=== PATIENT | female | born 1950 | race Caucasian/White ===

== ENCOUNTER 2016-05-14 06:01 | Observation (INO) | payer OTHER ==
[~2016-05-14] VITALS: Ht 154.9 cm; Wt 75.3 kg
[~2016-05-14 06:01] MED LIST: CITA10TA68 PO; FOLI1 PO; FURO40 PO; INSLAN SQ; LISI-660 PO; PANT40TA25 PO; RIFAX550 PO; SPIR25 PO
[2016-05-14 06:38] LABS: GLUCOSE,POINT OF CARE 287 MG/DL (70-110)
[2016-05-14] MEDS ORDERED: KETOROLAC TROMETHAMINE 30 MG/ML VIAL IVP ONE (06:45)
[2016-05-14 07:03] LABS: BASOPHILS % (AUTO) 0.4 % (0.0-2.0); EOSINOPHILS % (AUTO) 1.5 % (1.0-6.0); HEMATOCRIT 27.3 % (36-46); HEMOGLOBIN 8.9 g/dL (12.0-16.0); LYMPHOCYTES # (AUTO) 0.5 K/uL (1.0-4.8); MEAN CORPUSCULAR HEMOGLOBIN 24.6 pg (26.0-34.0); MEAN CORPUSCULAR HGB CONC 32.5 G/dL (31.0-37.0); MEAN CORPUSCULAR VOLUME 75 fL (80-100); MONOCYTES # (AUTO) 0.2 K/uL (0.1-1.0); NEUTROPHILS # (AUTO) 1.4 K/uL (1.8-7.7); NEUTROPHILS % (AUTO) 66.1 % (40.0-70.0); RED BLOOD CELL COUNT(AUTO) 3.62 MIL/uL (4.00-5.20); RED CELL DISTRIBUTION WIDTH 18.6 % (11.5-14.5); WHITE BLOOD COUNT (AUTO) 2.2 K/uL (4.5-11.0)
[2016-05-14 07:07] LABS: ANION GAP 8 mmol/L (8-16); CALCIUM, TOTAL 9.2 mg/dL (8.8-10.5); CARBON DIOXIDE 25 mmol/L (22-29); CHLORIDE 105 mmol/L (98-107); CREATININE 0.95 mg/dL (0.60-1.30); GLOMERULAR FILTR. RATE CALC 59 mL/min (>60); POTASSIUM 4.1 mmol/L (3.5-5.1); SODIUM SERUM 138 mmol/L (136-145); UREA NITROGEN, BLOOD 26 mg/dL (7-18)
[2016-05-14 07:12] LABS: INR 1.1 (0.9-1.1); PROTHROMBIN TIME 11.3 SEC (9.4-11.6)
[2016-05-14 07:13] LABS: ALANINE AMINOTRANSFERASE 51 U/L (12-78); ALBUMIN 2.7 g/dL (3.4-5.0); ASPARTATE AMINOTRANSFERASE 64 U/L (15-37); BILIRUBIN,TOTAL 0.6 mg/dL (0.1-1.0); TOTAL PROTEIN, SERUM 7.2 g/dL (6.4-8.2)
[2016-05-14 07:18] LABS: PLATELET COUNT (AUTO) 42 K/uL (150-450)
[2016-05-14 07:19] LABS: RBC MORPHOLOGY COMMENT ABNORMAL RBC MORPH
[2016-05-14] MEDS ORDERED: ONDANSETRON HCL 4 MG/2 ML VIAL IVP ONE (07:30)
[2016-05-14] MEDS ORDERED: ONDANSETRON HCL 4 MG/2 ML VIAL IVP PRN ×2 (08:00→19:45)
[2016-05-14] MEDS: MORPHINE SULFATE 2 MG/ML SYRINGE IVP PRN ×3 (09:10→19:51)
[2016-05-14 17:21] VITALS: BP 107/61
[2016-05-14] MEDS ORDERED: INFLUENZA VIRUS VACCINE QVS 2016-17 (3YR+)/PF 60 MCG/0.5 ML SYRINGE IM ONE (19:15)
[2016-05-14] MEDS ORDERED: ZOLPIDEM TARTRATE 5 MG TABLET PO PRN (19:45)
[2016-05-14] MEDS ORDERED: MAGNESIUM HYDROXIDE SUSPENSION 30 ML UDCUP PO PRN (19:45)
[2016-05-14] MEDS ORDERED: MORPHINE SULFATE 2 MG/ML SYRINGE IVP PRN (19:45)
[2016-05-14] MEDS ORDERED: BISACODYL 10 MG RECTAL RECTAL SUPPOSITORY PR PRN (19:45)
[2016-05-14] MEDS ORDERED: ACETAMINOPHEN 325 MG TABLET PO PRN (19:45)
[2016-05-14] MEDS ORDERED: HYDROCODONE/ACETAMINOPHEN 5-325 MG TABLET PO PRN (19:45)
[2016-05-14 19:51] VITALS: BP 123/63
[2016-05-14] MEDS ORDERED: SODIUM CHLORIDE 0.9% 1,000 ML IV ONE (20:00)
[2016-05-14] MEDS: DOCUSATE SODIUM 100 MG CAPSULE PO SCH (20:27)
[2016-05-14] MEDS: MetroNIDAZOLE 500 MG/NACL 100 ML IV SCH (21:17)
[2016-05-14] MEDS: RIFAXIMIN 550 MG TABLET PO SCH (21:18)
[2016-05-14] MEDS: CIPROFLOXACIN 400 MG/D5% WATER 200 ML IV SCH (22:40)
[2016-05-14] MEDS: HEPARIN SODIUM,PORCINE 5,000 UNITS/ML VIAL SQ SCH (23:04)
[2016-05-14 23:21] VITALS: BP 100/59
[2016-05-15 04:39] VITALS: BP 106/60
[2016-05-15] MEDS: MetroNIDAZOLE 500 MG/NACL 100 ML IV SCH ×2 (04:46→12:23)
[2016-05-15 07:26] VITALS: BP 103/51
[2016-05-15] MEDS: RIFAXIMIN 550 MG TABLET PO SCH (08:12)
[2016-05-15] MEDS: CIPROFLOXACIN 400 MG/D5% WATER 200 ML IV SCH (08:13)
[2016-05-15] MEDS: DOCUSATE SODIUM 100 MG CAPSULE PO SCH (08:13)
[2016-05-15] MEDS: HEPARIN SODIUM,PORCINE 5,000 UNITS/ML VIAL SQ SCH ×2 (08:14→16:00)
[2016-05-15] MEDS ORDERED: FUROSEMIDE 40 MG TABLET PO SCH (09:00)
[2016-05-15] MEDS ORDERED: PANTOPRAZOLE SODIUM 40 MG DR TABLET PO SCH (09:00)
[2016-05-15] MEDS ORDERED: LISINOPRIL 5 MG TABLET PO SCH (09:00)
[2016-05-15] MEDS ORDERED: SPIRONOLACTONE 25 MG TABLET PO SCH (09:00)
[2016-05-15] MEDS ORDERED: CITALOPRAM HYDROBROMIDE 10 MG TABLET PO SCH (09:00)
[2016-05-15] MEDS ORDERED: FOLIC ACID 1 MG TABLET PO SCH (09:00)
[2016-05-15 11:24] VITALS: BP 96/58
[2016-05-15] MEDS ORDERED: HYDR-309 PO (14:37)
[2016-05-15 16:02] VITALS: BP 132/62
[2016-05-16 06:14] LABS: GLUCOSE COMMENT 1 Received Meds; GLUCOSE,POINT OF CARE 74 MG/DL (70-110)
[2016-05-16 07:23] LABS: GLUCOSE,POINT OF CARE 88 MG/DL (70-110)
[2016-05-17 20:51] LABS: GLUCOSE,POINT OF CARE 75 MG/DL (70-110)
== END 2016-05-15 18:00 | disposition home or self-care (01) ==
LOC: EMS 06:02 → 5S 16:21 → INTOOBSV 16:21 → OBSVTOIN 16:21
PROVIDERS: ADMIT Internal Medicine; ATTEND Internal Medicine
DX: K92.2 Gastrointestinal hemorrhage, unspecified (principal); D61.818 Other pancytopenia; K55.9 Vascular disorder of intestine, unspecified; K74.60 Unspecified cirrhosis of liver; E78.5 Hyperlipidemia, unspecified; Z23 Encounter for immunization
CPT/HCPCS: 36415; 80053; 82962 ×2; 85018; 85025; 85610; 87081; 90471; 96361; 96365; 96366; 96367; 96372 ×2; 96375; 96376; 99285; G0378; G0480; J0744; J1644 ×2; J1885; J2270; J2405; J3490; J7030 ×2; 96374

== ENCOUNTER 2016-07-08 05:39 | Emergency (ER) | payer OTHER ==
[~2016-07-08] VITALS: Ht 154.9 cm; Wt 72.7 kg
[~2016-07-08 05:39] MED LIST changes: +HYDR-309 PO; -INSLAN SQ
[2016-07-08] MEDS ORDERED: MORPHINE SULFATE 4 MG/ML SYRINGE IVP ONE (06:45)
[2016-07-08] MEDS ORDERED: ONDANSETRON HCL 4 MG/2 ML VIAL IVP ONE (06:45)
[2016-07-08 06:51] LABS: APPEARANCE,URINE CLEAR (CLEAR); GLUCOSE, URINE (UA) >=1000 mg/dL (NEGATIVE); KETONES,URINE NEGATIVE (NEGATIVE); LEUKOCYTE ESTERASE ,URINE SMALL (NEGATIVE); OCCULT BLOOD,URINE NEGATIVE (NEGATIVE); PROTEIN,URINE NEGATIVE (NEGATIVE)
[2016-07-08 06:55] LABS: ADD UA MICROSCOPIC YES
[2016-07-08 07:04] LABS: ORIG DRAW (USER) PTCARESTAF
[2016-07-08 07:15] LABS: RBC,URINE None Seen /HPF (0-2)
[2016-07-08 07:16] LABS: SQUAMOUS EPITHELIAL CELL,UR Rare /LPF (None Seen)
[2016-07-08 07:23] LABS: CALCIUM, TOTAL 9.9 mg/dL (8.8-10.5); CREATININE 0.98 mg/dL (0.60-1.30); POTASSIUM 4.2 mmol/L (3.5-5.1)
[2016-07-08 07:29] LABS: ALBUMIN 3.2 g/dL (3.4-5.0); BILIRUBIN,TOTAL 0.7 mg/dL (0.1-1.0); TOTAL PROTEIN, SERUM 8.5 g/dL (6.4-8.2)
[2016-07-08 07:48] LABS: BASOPHILS % (AUTO) 0.3 % (0.0-2.0); EOSINOPHILS % (AUTO) 1.7 % (1.0-6.0); HEMATOCRIT 33.2 % (36-46); LYMPHOCYTES # (AUTO) 0.7 K/uL (1.0-4.8); LYMPHOCYTES % (AUTO) 26.1 % (22.0-44.0); MEAN CORPUSCULAR HEMOGLOBIN 25.7 pg (26.0-34.0); MEAN CORPUSCULAR VOLUME 78 fL (80-100); MONOCYTES # (AUTO) 0.3 K/uL (0.1-1.0); NEUTROPHILS # (AUTO) 1.5 K/uL (1.8-7.7); NEUTROPHILS % (AUTO) 59.9 % (40.0-70.0); RED BLOOD CELL COUNT(AUTO) 4.26 MIL/uL (4.00-5.20); RED CELL DISTRIBUTION WIDTH 18.4 % (11.5-14.5); WHITE BLOOD COUNT (AUTO) 2.5 K/uL (4.5-11.0)
[2016-07-08 07:49] LABS: PLATELET COUNT (AUTO) 45 K/uL (150-450)
[2016-07-08 09:24] VITALS: BP 123/74
[2016-07-08 10:53] LABS: RBC MORPHOLOGY COMMENT ABNORMAL RBC MORPH
== END 2016-07-08 09:33 | disposition home or self-care (01) ==
LOC: EMS 05:40
DX: R10.13 Epigastric pain (principal); E11.9 Type 2 diabetes mellitus without complications; K21.9 Gastro-esophageal reflux disease without esophagitis; I11.9 Hypertensive heart disease without heart failure; Z87.891 Personal history of nicotine dependence
CPT/HCPCS: 36415; 80053; 81001; 83690; 85025; 96374; 96375; 99284; J2270; J2405; 99285

== ENCOUNTER 2016-07-17 08:14 | Emergency (ER) | payer OTHER ==
[~2016-07-17] VITALS: Ht 154.9 cm; Wt 77.3 kg
[2016-07-17 08:27] LABS: GLUCOSE,POINT OF CARE 377 MG/DL (70-110)
[2016-07-17 09:17] LABS: GLUCOSE,POINT OF CARE 319 MG/DL (70-110)
[2016-07-17 10:17] VITALS: BP 110/64
[2016-07-17] MEDS ORDERED: IBUPROFEN 600 MG TABLET PO ONE (10:30)
[2016-07-17] MEDS ORDERED: INSLAN SQ (10:39)
== END 2016-07-17 10:40 | disposition home or self-care (01) ==
LOC: EMS 08:17
DX: J40 Bronchitis, not specified as acute or chronic (principal); E10.65 Type 1 diabetes mellitus with hyperglycemia; K21.9 Gastro-esophageal reflux disease without esophagitis; I11.9 Hypertensive heart disease without heart failure; Z87.891 Personal history of nicotine dependence
CPT/HCPCS: 82948; 82962; 99283; 99406

== ENCOUNTER 2016-07-29 17:00 | Emergency (ER) | payer OTHER ==
[~2016-07-29] VITALS: Ht 154.9 cm; Wt 75.5 kg
[~2016-07-29 17:00] MED LIST changes: +INSLAN SQ
[2016-07-29] MEDS ORDERED: IBUPROFEN 600 MG TABLET PO ONE (20:30)
[2016-07-29 20:44] VITALS: BP 119/80
== END 2016-07-29 20:44 | disposition home or self-care (01) ==
LOC: EMS 17:02
DX: R21 Rash and other nonspecific skin eruption (principal); E11.9 Type 2 diabetes mellitus without complications; I11.9 Hypertensive heart disease without heart failure; K21.9 Gastro-esophageal reflux disease without esophagitis; Z87.891 Personal history of nicotine dependence; Z79.4 Long term (current) use of insulin
CPT/HCPCS: 82962; 99283

== ENCOUNTER 2016-08-13 12:29 | Emergency (ER) | payer OTHER ==
[~2016-08-13] VITALS: Ht 154.9 cm; Wt 73.2 kg
[2016-08-13] MEDS ORDERED: SODIUM CHLORIDE 0.9% 1,000 ML IV ONE ×2 (12:55→13:00)
[2016-08-13] MEDS ORDERED: KETOROLAC TROMETHAMINE 30 MG/ML VIAL IVP ONE (13:00)
[2016-08-13] MEDS ORDERED: ONDANSETRON HCL 4 MG/2 ML VIAL IVP ONE (13:00)
[2016-08-13 13:12] LABS: APPEARANCE,URINE CLEAR (CLEAR); GLUCOSE, URINE (UA) 250 mg/dL (NEGATIVE); KETONES,URINE NEGATIVE (NEGATIVE); LEUKOCYTE ESTERASE ,URINE NEGATIVE (NEGATIVE); OCCULT BLOOD,URINE NEGATIVE (NEGATIVE); PROTEIN,URINE NEGATIVE (NEGATIVE)
[2016-08-13 13:14] LABS: ADD UA MICROSCOPIC YES
[2016-08-13 13:30] LABS: RBC,URINE None Seen /HPF (0-2); SQUAMOUS EPITHELIAL CELL,UR Few /LPF (None Seen); WBC,URINE 0-2 /HPF (0-5)
[2016-08-13 13:34] LABS: BASOPHILS % (AUTO) 0.4 % (0.0-2.0); EOSINOPHILS % (AUTO) 0 % (1.0-6.0); HEMATOCRIT 34.6 % (36-46); HEMOGLOBIN 11.3 g/dL (12.0-16.0); LYMPHOCYTES # (AUTO) 0.7 K/uL (1.0-4.8); MEAN CORPUSCULAR HEMOGLOBIN 24.5 pg (26.0-34.0); MEAN CORPUSCULAR HGB CONC 32.6 G/dL (31.0-37.0); MEAN CORPUSCULAR VOLUME 75 fL (80-100); MONOCYTES # (AUTO) 0.3 K/uL (0.1-1.0); MONOCYTES % (AUTO) 8.2 % (2.0-9.0); NEUTROPHILS # (AUTO) 2.8 K/uL (1.8-7.7); NEUTROPHILS % (AUTO) 73.4 % (40.0-70.0); PLATELET COUNT (AUTO) 66 K/uL (150-450); RED CELL DISTRIBUTION WIDTH 17.1 % (11.5-14.5); WHITE BLOOD COUNT (AUTO) 3.9 K/uL (4.5-11.0)
[2016-08-13 13:41] LABS: CALCIUM, TOTAL 8.9 mg/dL (8.8-10.5); CREATININE 0.94 mg/dL (0.60-1.30); POTASSIUM 3.8 mmol/L (3.5-5.1)
[2016-08-13 13:46] LABS: ALBUMIN 3.2 g/dL (3.4-5.0); TOTAL PROTEIN, SERUM 8.7 g/dL (6.4-8.2)
[2016-08-13 13:53] LABS: RBC MORPHOLOGY COMMENT ABNORMAL RBC MORPH
[2016-08-13] MEDS ORDERED: PANTOPRAZOLE SODIUM 40 MG/VIAL IVP ONE (14:30)
[2016-08-13] MEDS ORDERED: DONNATAL/LIDOCAINE/MAALOX 55 ML BOTTLE PO ONE (14:30)
[2016-08-13] MEDS ORDERED: MORPHINE SULFATE 10 MG/ML SYRINGE IVP ONE (15:00)
[2016-08-13] MEDS ORDERED: METOCLOPRAMIDE HCL 5 MG/ML 2 ML VIAL IVP ONE (15:00)
[2016-08-13 16:00] VITALS: BP 114/66
== END 2016-08-13 16:38 | disposition home or self-care (01) ==
LOC: EMS 12:30
DX: K29.20 Alcoholic gastritis without bleeding (principal); E11.9 Type 2 diabetes mellitus without complications; I11.9 Hypertensive heart disease without heart failure; K21.9 Gastro-esophageal reflux disease without esophagitis; Z87.891 Personal history of nicotine dependence; Z79.4 Long term (current) use of insulin
CPT/HCPCS: 36415; 76705; 80053; 81001; 82962; 83690; 85025; 93005; 96361; 96374; 96375; 99285; C9113; J1885; J2270; J2405; J2765; J7030; Z7610

== ENCOUNTER 2016-08-27 07:39 | Emergency (ER) | payer OTHER ==
[~2016-08-27] VITALS: Ht 154.9 cm; Wt 75.5 kg
[2016-08-27] MEDS ORDERED: HYDROCODONE/ACETAMINOPHEN 5-325 MG TABLET PO ONE (08:00)
[2016-08-27 08:02] LABS: GLUCOSE COMMENT 1 Doctor Notified; GLUCOSE,POINT OF CARE 332 MG/DL (70-110)
[2016-08-27 09:12] VITALS: BP 112/66
== END 2016-08-27 09:40 | disposition home or self-care (01) ==
LOC: EMS 07:42
DX: S90.32XA Contusion of left foot, initial encounter (principal); E11.65 Type 2 diabetes mellitus with hyperglycemia; K21.9 Gastro-esophageal reflux disease without esophagitis; I10 Essential (primary) hypertension; Z79.4 Long term (current) use of insulin; Z87.891 Personal history of nicotine dependence; X58.XXXA Exposure to other specified factors, initial encounter; Y93.89 Activity, other specified; Y92.89 Other specified places as the place of occurrence of the external cause; Y99.8 Other external cause status
CPT/HCPCS: 82962; 99284

== ENCOUNTER 2016-09-04 15:38 | Emergency (ER) | payer OTHER ==
[~2016-09-04] VITALS: Ht 154.9 cm; Wt 75.5 kg
[~2016-09-04 15:38] MED LIST changes: -HYDR-309 PO
[2016-09-04 15:51] LABS: GLUCOSE COMMENT 1 Repeated; GLUCOSE,POINT OF CARE 435 MG/DL (70-110)
[2016-09-04 17:52] LABS: GLUCOSE,POINT OF CARE 419 MG/DL (70-110)
[2016-09-04] MEDS ORDERED: INSULIN REGULAR, HUMAN 100 UNITS/ML IV ONE (18:45)
[2016-09-04] MEDS ORDERED: SODIUM CHLORIDE 0.9% 1,000 ML IV ONE ×2 (18:45→19:30)
[2016-09-04 19:01] LABS: GLUCOSE COMMENT 1 Doctor Notified; GLUCOSE,POINT OF CARE 359 MG/DL (70-110)
[2016-09-04 19:06] LABS: CALCIUM, TOTAL 10.3 mg/dL (8.8-10.5); CREATININE 1.09 mg/dL (0.60-1.30)
[2016-09-04 19:07] LABS: BASOPHILS % (AUTO) 0.1 % (0.0-2.0); EOSINOPHILS # (AUTO) 0.01 K/uL (0.00-0.70); EOSINOPHILS % (AUTO) 0.46 % (1.0-6.0); HEMATOCRIT 30.3 % (36-46); HEMOGLOBIN 9.8 g/dL (12.0-16.0); LYMPHOCYTES # (AUTO) 0.4 K/uL (1.0-4.8); LYMPHOCYTES % (AUTO) 19.2 % (22.0-44.0); MEAN CORPUSCULAR HGB CONC 32.4 G/dL (31.0-37.0); MEAN CORPUSCULAR VOLUME 77 fL (80-100); MONOCYTES # (AUTO) 0.2 K/uL (0.1-1.0); MONOCYTES % (AUTO) 6.7 % (2.0-9.0); NEUTROPHILS # (AUTO) 1.6 K/uL (1.8-7.7); NEUTROPHILS % (AUTO) 73.5 % (40.0-70.0); RED BLOOD CELL COUNT(AUTO) 3.93 MIL/uL (4.00-5.20); WHITE BLOOD COUNT (AUTO) 2.2 K/uL (4.5-11.0)
[2016-09-04 19:12] LABS: ALBUMIN 2.8 g/dL (3.4-5.0); BILIRUBIN,TOTAL 0.6 mg/dL (0.1-1.0); TOTAL PROTEIN, SERUM 7.9 g/dL (6.4-8.2)
[2016-09-04] MEDS ORDERED: KETOROLAC TROMETHAMINE 30 MG/ML VIAL IVP ONE (19:30)
[2016-09-04] MEDS ORDERED: OxyCODONE HCL/ACETAMINOPHEN 5-325 MG TABLET PO ONE (19:45)
[2016-09-04] MEDS ORDERED: SULFAMETHOX/TRIMETH DS 800-160 MG/TABLET PO ONE (19:45)
[2016-09-04 19:46] LABS: PLATELET COUNT (AUTO) 41 K/uL (150-450)
[2016-09-04 19:47] LABS: RBC MORPHOLOGY COMMENT ABNORMAL RBC MORPH
[2016-09-04 19:51] LABS: APPEARANCE,URINE CLEAR (CLEAR); GLUCOSE, URINE (UA) >=1000 mg/dL (NEGATIVE); KETONES,URINE NEGATIVE (NEGATIVE); LEUKOCYTE ESTERASE ,URINE NEGATIVE (NEGATIVE); OCCULT BLOOD,URINE NEGATIVE (NEGATIVE); PROTEIN,URINE NEGATIVE (NEGATIVE)
[2016-09-04 19:53] LABS: ADD UA MICROSCOPIC YES
[2016-09-04 20:05] LABS: SQUAMOUS EPITHELIAL CELL,UR Few /LPF (None Seen)
[2016-09-04 20:06] LABS: RBC,URINE 0-2 /HPF (0-2); WBC,URINE 0-2 /HPF (0-5)
[2016-09-04 20:56] LABS: GLUCOSE COMMENT 1 Doctor Notified; GLUCOSE,POINT OF CARE 146 MG/DL (70-110)
[2016-09-04 21:18] VITALS: BP 118/76
== END 2016-09-04 21:20 | disposition home or self-care (01) ==
LOC: EMS 15:43
DX: L03.031 Cellulitis of right toe (principal); E11.65 Type 2 diabetes mellitus with hyperglycemia; I10 Essential (primary) hypertension; K21.9 Gastro-esophageal reflux disease without esophagitis; Z87.891 Personal history of nicotine dependence
CPT/HCPCS: 36415; 80053; 81001; 82962; 83690; 83880; 84484; 85025; 96361; 96374; 96375; 99285; J1815; J1885; J7030

== ENCOUNTER 2016-09-17 09:10 | Emergency (ER) | payer OTHER ==
[~2016-09-17] VITALS: Ht 154.9 cm; Wt 75.5 kg
[2016-09-17 09:27] LABS: GLUCOSE,POINT OF CARE > 600 MG/DL (70-110)
[2016-09-17] MEDS ORDERED: SODIUM CHLORIDE 0.9% 1,000 ML IV ONE (09:45)
[2016-09-17] MEDS ORDERED: MORPHINE SULFATE 4 MG/ML SYRINGE IVP ONE (09:45)
[2016-09-17] MEDS ORDERED: INSULIN REGULAR, HUMAN 100 UNITS/ML IVP ONE (09:45)
[2016-09-17 09:57] LABS: BASOPHILS % (AUTO) 1.1 % (0.0-2.0); EOSINOPHILS % (AUTO) 1.2 % (1.0-6.0); HEMATOCRIT 34.4 % (36-46); HEMOGLOBIN 10.8 g/dL (12.0-16.0); LYMPHOCYTES # (AUTO) 0.5 K/uL (1.0-4.8); LYMPHOCYTES % (AUTO) 22.5 % (22.0-44.0); MEAN CORPUSCULAR HGB CONC 31.3 G/dL (31.0-37.0); MEAN CORPUSCULAR VOLUME 76 fL (80-100); MONOCYTES # (AUTO) 0.2 K/uL (0.1-1.0); MONOCYTES % (AUTO) 6.5 % (2.0-9.0); NEUTROPHILS # (AUTO) 1.7 K/uL (1.8-7.7); NEUTROPHILS % (AUTO) 68.7 % (40.0-70.0); RED CELL DISTRIBUTION WIDTH 19.1 % (11.5-14.5); WHITE BLOOD COUNT (AUTO) 2.4 K/uL (4.5-11.0)
[2016-09-17 10:20] LABS: CALCIUM, TOTAL 9.4 mg/dL (8.8-10.5); CREATININE 1.02 mg/dL (0.60-1.30); POTASSIUM 4.6 mmol/L (3.5-5.1); TOTAL PROTEIN, SERUM 8.6 g/dL (6.4-8.2)
[2016-09-17 10:45] LABS: PLATELET COUNT (AUTO) 51 K/uL (150-450); RBC MORPHOLOGY COMMENT ABNORMAL RBC MORPH
[2016-09-17 11:07] LABS: GLUCOSE,POINT OF CARE 358 MG/DL (70-110)
[2016-09-17 11:55] VITALS: BP 110/57
[2016-09-17 12:02] LABS: GLUCOSE,POINT OF CARE 343 MG/DL (70-110)
== END 2016-09-17 12:10 | disposition home or self-care (01) ==
LOC: EMS 09:12
DX: S16.1XXA Strain of muscle, fascia and tendon at neck level, initial encounter (principal); S20.212A Contusion of left front wall of thorax, initial encounter; E11.65 Type 2 diabetes mellitus with hyperglycemia; D69.6 Thrombocytopenia, unspecified; R00.1 Bradycardia, unspecified; I11.9 Hypertensive heart disease without heart failure; K21.9 Gastro-esophageal reflux disease without esophagitis; Z87.891 Personal history of nicotine dependence; W06.XXXA Fall from bed, initial encounter; Y93.01 Activity, walking, marching and hiking; Y92.89 Other specified places as the place of occurrence of the external cause; Y99.8 Other external cause status
CPT/HCPCS: 36415; 71010; 72125; 80053; 82948; 82962; 85025; 93005; 96361; 96374; 96375; 99285; J1815; J2270; J7030

== ENCOUNTER 2016-09-28 18:38 | Inpatient (IN) | payer MEDICAID, OTHER ==
[~2016-09-28] VITALS: Ht 154.9 cm; Wt 72.1 kg
[2016-09-28 19:02] LABS: GLUCOSE,POINT OF CARE 391 MG/DL (70-110)
[2016-09-28] MEDS ORDERED: INSULIN REGULAR, HUMAN 100 UNITS/ML SQ ONE (19:30)
[2016-09-28 19:34] LABS: BASOPHILS % (AUTO) 0.2 % (0.0-2.0); EOSINOPHILS % (AUTO) 0.1 % (1.0-6.0); HEMATOCRIT 29.7 % (36-46); HEMOGLOBIN 9.4 g/dL (12.0-16.0); LYMPHOCYTES # (AUTO) 0.5 K/uL (1.0-4.8); LYMPHOCYTES % (AUTO) 21.8 % (22.0-44.0); MEAN CORPUSCULAR HEMOGLOBIN 24.2 pg (26.0-34.0); MEAN CORPUSCULAR HGB CONC 31.7 G/dL (31.0-37.0); MEAN CORPUSCULAR VOLUME 76 fL (80-100); MONOCYTES # (AUTO) 0.2 K/uL (0.1-1.0); MONOCYTES % (AUTO) 9.3 % (2.0-9.0); NEUTROPHILS # (AUTO) 1.4 K/uL (1.8-7.7); NEUTROPHILS % (AUTO) 68.6 % (40.0-70.0); RED BLOOD CELL COUNT(AUTO) 3.89 MIL/uL (4.00-5.20); RED CELL DISTRIBUTION WIDTH 19.7 % (11.5-14.5); WHITE BLOOD COUNT (AUTO) 2.1 K/uL (4.5-11.0)
[2016-09-28 19:41] LABS: ANION GAP 11 mmol/L (8-16); CALCIUM, TOTAL 8.8 mg/dL (8.8-10.5); CARBON DIOXIDE 23 mmol/L (22-29); CHLORIDE 97 mmol/L (98-107); CREATININE 1.04 mg/dL (0.60-1.30); GLOMERULAR FILTR. RATE CALC 53 mL/min (>60); POTASSIUM 3.9 mmol/L (3.5-5.1); SODIUM SERUM 131 mmol/L (136-145); UREA NITROGEN, BLOOD 12 mg/dL (7-18)
[2016-09-28 19:46] LABS: ALANINE AMINOTRANSFERASE 58 U/L (12-78); ALBUMIN 2.9 g/dL (3.4-5.0); ASPARTATE AMINOTRANSFERASE 102 U/L (15-37); BILIRUBIN,TOTAL 1.2 mg/dL (0.1-1.0); TOTAL PROTEIN, SERUM 7.6 g/dL (6.4-8.2)
[2016-09-28 20:07] LABS: PLATELET COUNT (AUTO) 48 K/uL (150-450)
[2016-09-28] MEDS ORDERED: ACETAMINOPHEN 500 MG TABLET PO ONE (20:30)
[2016-09-28] MEDS ORDERED: IBUPROFEN 600 MG TABLET PO ONE (20:30)
[2016-09-28] MEDS ORDERED: IBUPROFEN 800 MG TABLET PO ONE (20:45)
[2016-09-28] MEDS ORDERED: LORazepam 2 MG TABLET PO ONE (21:15)
[2016-09-28] MEDS ORDERED: SODIUM CHLORIDE 1 GM TABLET PO ONE (22:00)
[2016-09-28 22:01] LABS: GLUCOSE,POINT OF CARE 251 MG/DL (70-110)
[2016-09-28] MEDS ORDERED: PROMETHAZINE HCL 25 MG/ML VIAL IM PRN (22:15)
[2016-09-28] MEDS ORDERED: ZOLPIDEM TARTRATE 10 MG TABLET PO PRN (22:15)
[2016-09-28] MEDS ORDERED: CloNIDine HCL 0.1 MG TABLET PO PRN (22:15)
[2016-09-28] MEDS ORDERED: LOPERAMIDE HCL 2 MG CAPSULE PO PRN (22:15)
[2016-09-28] MEDS ORDERED: HydrOXYzine PAMOATE 50 MG CAPSULE PO PRN ×2 (22:15)
[2016-09-28] MEDS ORDERED: HALOPERIDOL 5 MG TABLET PO PRN (22:15)
[2016-09-28] MEDS ORDERED: GuaiFENesin/D-METHORPHAN [SUGAR-FREE] 200-20MG/10 ML SYRUP UDCUP PO PRN (22:15)
[2016-09-28] MEDS ORDERED: CYANOCOBALAMIN 1,000 MCG/ML VIAL IM ONE (22:15)
[2016-09-28 23:44] LABS: APPEARANCE,URINE CLEAR (CLEAR); GLUCOSE, URINE (UA) >=1000 mg/dL (NEGATIVE); KETONES,URINE NEGATIVE (NEGATIVE); LEUKOCYTE ESTERASE ,URINE SMALL (NEGATIVE); PH,URINE 5.5 (5.0-8.0); PROTEIN,URINE NEGATIVE (NEGATIVE)
[2016-09-28 23:45] VITALS: BP 141/84
[2016-09-28 23:48] LABS: ADD UA MICROSCOPIC YES; OCCULT BLOOD,URINE TRACE (NEGATIVE); SQUAMOUS EPITHELIAL CELL,UR Moderate /LPF (None Seen)
[2016-09-29] VITALS (15 sets, daily range): BP systolic 109–157; BP diastolic 57–88
[2016-09-29] MEDS: LORazepam 2 MG TABLET PO PRN ×2 (01:04→19:23)
[2016-09-29] MEDS: IBUPROFEN 600 MG TABLET PO PRN ×2 (01:05→12:54)
[2016-09-29] MEDS: CloNIDine HCL 0.1 MG TABLET PO SCH ×4 (06:00→22:00)
[2016-09-29 06:17] LABS: GLUCOSE,POINT OF CARE 171 MG/DL (70-110)
[2016-09-29 08:29] LABS: HEMOGLOBIN A1C 11.3 % (4.5-6.2)
[2016-09-29] MEDS: CITALOPRAM HYDROBROMIDE 10 MG TABLET PO SCH (08:34)
[2016-09-29] MEDS: FOLIC ACID 1 MG TABLET PO SCH (08:34)
[2016-09-29] MEDS: MULTIVITAMINS WITH MINERALS, THERAPEUTIC TABLET PO SCH (08:34)
[2016-09-29] MEDS: THIAMINE HCL 100 MG TABLET PO SCH ×2 (08:34→16:32)
[2016-09-29] MEDS ORDERED: PANTOPRAZOLE SODIUM 40 MG DR TABLET PO SCH (10:00)
[2016-09-29] MEDS: RIFAXIMIN 550 MG TABLET PO SCH ×2 (10:00→16:32)
[2016-09-29] MEDS ORDERED: GLUCAGON,HUMAN RECOMBINANT 1 MG VIAL IM PRN (10:00)
[2016-09-29] MEDS: NICOTINE 7 MG/24 HOUR PATCH TD SCH (12:19)
[2016-09-29 13:07] LABS: GLUCOSE COMMENT 1 Doctor Notified; GLUCOSE,POINT OF CARE 445 MG/DL (70-110)
[2016-09-29] MEDS: INSULIN ASPART 100 UNITS/ML SQ PRN ×3 (13:37→20:59)
[2016-09-29] MEDS: FUROSEMIDE 40 MG TABLET PO SCH (13:51)
[2016-09-29] MEDS: CEPHALEXIN MONOHYDRATE 500 MG CAPSULE PO SCH (16:32)
[2016-09-29 16:57] LABS: GLUCOSE,POINT OF CARE 362 MG/DL (70-110)
[2016-09-29] MEDS: INSULIN DETEMIR 100 UNITS/ML SQ SCH (20:54)
[2016-09-29 21:07] LABS: GLUCOSE,POINT OF CARE 363 MG/DL (70-110)
[2016-09-30 02:46] VITALS: BP 121/70
[2016-09-30 05:57] VITALS: BP 122/73
[2016-09-30 06:00] VITALS: BP 122/73
[2016-09-30] MEDS: CloNIDine HCL 0.1 MG TABLET PO SCH ×4 (06:22→21:55)
[2016-09-30 06:27] LABS: GLUCOSE,POINT OF CARE 173 MG/DL (70-110)
[2016-09-30] MEDS: INSULIN ASPART 100 UNITS/ML SQ PRN ×2 (06:45→11:03)
[2016-09-30 08:09] VITALS: BP 94/51
[2016-09-30] MEDS ORDERED: NICOTINE 7 MG/24 HOUR PATCH TD SCH (09:00)
[2016-09-30] MEDS: MULTIVITAMINS WITH MINERALS, THERAPEUTIC TABLET PO SCH (09:08)
[2016-09-30] MEDS: CITALOPRAM HYDROBROMIDE 10 MG TABLET PO SCH (09:08)
[2016-09-30] MEDS: NICOTINE 7 MG/24 HOUR PATCH TD SCH (09:08)
[2016-09-30] MEDS: RANITIDINE HCL 150 MG TABLET PO SCH (09:09)
[2016-09-30] MEDS: CEPHALEXIN MONOHYDRATE 500 MG CAPSULE PO SCH ×2 (09:09→16:26)
[2016-09-30] MEDS: LISINOPRIL 5 MG TABLET PO SCH (09:09)
[2016-09-30] MEDS: RIFAXIMIN 550 MG TABLET PO SCH ×2 (09:09→16:26)
[2016-09-30] MEDS: FOLIC ACID 1 MG TABLET PO SCH (09:09)
[2016-09-30] MEDS: GABAPENTIN 300 MG CAPSULE PO SCH ×3 (09:09→16:27)
[2016-09-30] MEDS: THIAMINE HCL 100 MG TABLET PO SCH ×2 (09:09→16:27)
[2016-09-30 09:10] VITALS: BP 113/60
[2016-09-30] MEDS: SPIRONOLACTONE 25 MG TABLET PO SCH (09:10)
[2016-09-30] MEDS: FUROSEMIDE 40 MG TABLET PO SCH (09:10)
[2016-09-30 09:33] LABS: GLUCOSE,POINT OF CARE 324 MG/DL (70-110)
[2016-09-30] MEDS: INSULIN DETEMIR 100 UNITS/ML SQ SCH ×2 (09:34→21:17)
[2016-09-30 10:57] LABS: GLUCOSE,POINT OF CARE 356 MG/DL (70-110)
[2016-09-30] MEDS: LORazepam 2 MG TABLET PO PRN (11:53)
[2016-09-30 16:00] VITALS: BP 108/68
[2016-09-30 17:17] LABS: GLUCOSE,POINT OF CARE 419 MG/DL (70-110)
[2016-09-30] MEDS ORDERED: INSULIN ASPART 100 UNITS/ML SQ ONE ×2 (18:30→22:45)
[2016-09-30 20:52] LABS: GLUCOSE,POINT OF CARE 418 MG/DL (70-110)
[2016-09-30 22:37] LABS: GLUCOSE,POINT OF CARE 407 MG/DL (70-110)
[2016-10-01 00:28] VITALS: BP 104/60
[2016-10-01 00:37] LABS: GLUCOSE,POINT OF CARE 276 MG/DL (70-110)
[2016-10-01 05:56] VITALS: BP 95/54
[2016-10-01] MEDS: CloNIDine HCL 0.1 MG TABLET PO SCH ×2 (06:00→12:21)
[2016-10-01 06:07] LABS: GLUCOSE,POINT OF CARE 297 MG/DL (70-110)
[2016-10-01] MEDS: INSULIN ASPART 100 UNITS/ML SQ PRN (06:31)
[2016-10-01] MEDS: IBUPROFEN 600 MG TABLET PO PRN (06:35)
[2016-10-01 08:10] VITALS: BP 103/68
[2016-10-01] MEDS ORDERED: INSULIN ASPART 100 UNITS/ML SQ PRN (08:30)
[2016-10-01] MEDS ORDERED: GLUCAGON,HUMAN RECOMBINANT 1 MG VIAL IM PRN (08:30)
[2016-10-01] MEDS: SPIRONOLACTONE 25 MG TABLET PO SCH (09:00)
[2016-10-01] MEDS: FUROSEMIDE 40 MG TABLET PO SCH ×2 (09:00→09:37)
[2016-10-01] MEDS: LISINOPRIL 5 MG TABLET PO SCH (09:00)
[2016-10-01] MEDS: MULTIVITAMINS WITH MINERALS, THERAPEUTIC TABLET PO SCH (09:36)
[2016-10-01] MEDS: NICOTINE 7 MG/24 HOUR PATCH TD SCH (09:36)
[2016-10-01] MEDS: GABAPENTIN 300 MG CAPSULE PO SCH ×3 (09:36→17:00)
[2016-10-01] MEDS: FOLIC ACID 1 MG TABLET PO SCH (09:37)
[2016-10-01] MEDS: CITALOPRAM HYDROBROMIDE 10 MG TABLET PO SCH (09:37)
[2016-10-01] MEDS: CEPHALEXIN MONOHYDRATE 500 MG CAPSULE PO SCH ×2 (09:37→17:00)
[2016-10-01] MEDS: THIAMINE HCL 100 MG TABLET PO SCH ×2 (09:37→17:00)
[2016-10-01] MEDS: RANITIDINE HCL 150 MG TABLET PO SCH (09:38)
[2016-10-01] MEDS: RIFAXIMIN 550 MG TABLET PO SCH ×2 (09:38→17:00)
[2016-10-01] MEDS: INSULIN DETEMIR 100 UNITS/ML SQ SCH ×2 (09:43→21:00)
[2016-10-01 09:45] VITALS: BP 105/63
[2016-10-01 09:47] LABS: GLUCOSE,POINT OF CARE 460 MG/DL (70-110)
[2016-10-01 11:07] LABS: GLUCOSE,POINT OF CARE 464 MG/DL (70-110)
[2016-10-01 12:37] LABS: GLUCOSE,POINT OF CARE 526 MG/DL (70-110)
[2016-10-01 12:56] LABS: GLUCOSE,POINT OF CARE 441 MG/DL (70-110)
[2016-10-01] MEDS ORDERED: INSULIN ASPART 100 UNITS/ML SQ ONE (13:00)
[2016-10-01 13:46] LABS: GLUCOSE,POINT OF CARE 392 MG/DL (70-110)
[2016-10-01 16:31] LABS: GLUCOSE,POINT OF CARE 210 MG/DL (70-110)
[2016-10-01 17:42] LABS: GLUCOSE,POINT OF CARE 149 MG/DL (70-110)
[2016-10-01] MEDS ORDERED: DEXTROSE 50%-WATER 25 GM/50 ML SYG IVP PRN (21:45)
[2016-10-02 01:39] VITALS: BP 116/78
[2016-10-02] MEDS: INSULIN ASPART 100 UNITS/ML SQ PRN ×4 (06:53→20:52)
[2016-10-02] MEDS: INSULIN DETEMIR 100 UNITS/ML SQ SCH ×2 (08:55→20:53)
[2016-10-02] MEDS: FOLIC ACID 1 MG TABLET PO SCH (09:08)
[2016-10-02] MEDS: CITALOPRAM HYDROBROMIDE 10 MG TABLET PO SCH (09:08)
[2016-10-02] MEDS: GABAPENTIN 300 MG CAPSULE PO SCH ×3 (09:08→17:20)
[2016-10-02] MEDS: NICOTINE 7 MG/24 HOUR PATCH TD SCH (09:08)
[2016-10-02] MEDS: MULTIVITAMINS WITH MINERALS, THERAPEUTIC TABLET PO SCH (09:09)
[2016-10-02] MEDS: RANITIDINE HCL 150 MG TABLET PO SCH (09:09)
[2016-10-02] MEDS: THIAMINE HCL 100 MG TABLET PO SCH ×2 (09:09→17:20)
[2016-10-02] MEDS: RIFAXIMIN 550 MG TABLET PO SCH ×2 (09:09→17:19)
[2016-10-02] MEDS: FUROSEMIDE 40 MG TABLET PO SCH (09:09)
[2016-10-02] MEDS: LISINOPRIL 5 MG TABLET PO SCH (09:09)
[2016-10-02] MEDS: SPIRONOLACTONE 25 MG TABLET PO SCH (09:09)
[2016-10-02] MEDS: LORazepam 2 MG TABLET PO PRN (09:10)
[2016-10-02 09:20] VITALS: BP 124/72
[2016-10-02] MEDS: IBUPROFEN 600 MG TABLET PO PRN (09:25)
[2016-10-02] MEDS: CEPHALEXIN MONOHYDRATE 500 MG CAPSULE PO SCH ×2 (09:25→17:20)
[2016-10-02] MEDS: MAG HYDROX/AL HYDROX/SIMETH ES 30 ML SUSPENSION UDCUP PO PRN (09:27)
[2016-10-02 11:52] LABS: GLUCOSE COMMENT 1 Received Meds; GLUCOSE,POINT OF CARE 391 MG/DL (70-110)
[2016-10-02] MEDS ORDERED: INSULIN ASPART 100 UNITS/ML SQ ONE ×3 (12:00→22:45)
[2016-10-02 13:21] LABS: GLUCOSE,POINT OF CARE 333 MG/DL (70-110)
[2016-10-02 16:30] VITALS: BP 108/63
[2016-10-02 16:47] LABS: GLUCOSE COMMENT 1 Received Meds; GLUCOSE,POINT OF CARE 335 MG/DL (70-110)
[2016-10-02 18:37] LABS: GLUCOSE COMMENT 1 Repeated; GLUCOSE,POINT OF CARE 433 MG/DL (70-110)
[2016-10-02 18:41] LABS: GLUCOSE COMMENT 1 Doctor Notified; GLUCOSE,POINT OF CARE 431 MG/DL (70-110)
[2016-10-02 20:51] LABS: GLUCOSE COMMENT 1 Received Meds; GLUCOSE,POINT OF CARE 274 MG/DL (70-110)
[2016-10-02 21:36] LABS: GLUCOSE COMMENT 1 Doctor Notified; GLUCOSE,POINT OF CARE 254 MG/DL (70-110)
[2016-10-02 22:37] LABS: GLUCOSE COMMENT 1 Doctor Notified; GLUCOSE,POINT OF CARE 316 MG/DL (70-110)
[2016-10-02 23:30] VITALS: BP 116/73
[2016-10-02 23:31] LABS: GLUCOSE COMMENT 1 Doctor Notified; GLUCOSE,POINT OF CARE 327 MG/DL (70-110)
[2016-10-03 04:00] VITALS: BP 110/69
[2016-10-03 06:07] LABS: GLUCOSE,POINT OF CARE 234 MG/DL (70-110)
[2016-10-03] MEDS: INSULIN ASPART 100 UNITS/ML SQ PRN ×3 (07:03→20:27)
[2016-10-03 08:37] VITALS: BP 123/97
[2016-10-03] MEDS: LORazepam 2 MG TABLET PO PRN (08:39)
[2016-10-03] MEDS: NICOTINE 7 MG/24 HOUR PATCH TD SCH (08:39)
[2016-10-03] MEDS: IBUPROFEN 600 MG TABLET PO PRN ×2 (08:39→21:33)
[2016-10-03] MEDS: MAG HYDROX/AL HYDROX/SIMETH ES 30 ML SUSPENSION UDCUP PO PRN (08:40)
[2016-10-03] MEDS: FOLIC ACID 1 MG TABLET PO SCH (08:40)
[2016-10-03] MEDS: MULTIVITAMINS WITH MINERALS, THERAPEUTIC TABLET PO SCH (08:40)
[2016-10-03] MEDS: CEPHALEXIN MONOHYDRATE 500 MG CAPSULE PO SCH ×2 (08:40→16:25)
[2016-10-03] MEDS: FUROSEMIDE 40 MG TABLET PO SCH (08:41)
[2016-10-03] MEDS: LISINOPRIL 5 MG TABLET PO SCH (08:41)
[2016-10-03] MEDS: CITALOPRAM HYDROBROMIDE 10 MG TABLET PO SCH (08:41)
[2016-10-03] MEDS: THIAMINE HCL 100 MG TABLET PO SCH ×2 (08:41→16:25)
[2016-10-03] MEDS: SPIRONOLACTONE 25 MG TABLET PO SCH (08:41)
[2016-10-03] MEDS: GABAPENTIN 300 MG CAPSULE PO SCH ×3 (08:41→16:25)
[2016-10-03] MEDS: RIFAXIMIN 550 MG TABLET PO SCH ×2 (08:41→16:25)
[2016-10-03] MEDS: RANITIDINE HCL 150 MG TABLET PO SCH (08:41)
[2016-10-03] MEDS: INSULIN DETEMIR 100 UNITS/ML SQ SCH ×2 (09:33→20:28)
[2016-10-03 11:42] LABS: GLUCOSE COMMENT 1 Received Meds; GLUCOSE,POINT OF CARE 422 MG/DL (70-110)
[2016-10-03 13:32] LABS: GLUCOSE COMMENT 1 Repeated; GLUCOSE,POINT OF CARE 389 MG/DL (70-110)
[2016-10-03 14:41] LABS: GLUCOSE COMMENT 1 Repeated; GLUCOSE,POINT OF CARE 408 MG/DL (70-110)
[2016-10-03] MEDS ORDERED: INSULIN ASPART 100 UNITS/ML SQ ONE (17:15)
[2016-10-03 17:52] LABS: GLUCOSE,POINT OF CARE 534 MG/DL (70-110)
[2016-10-03 17:52] LABS: GLUCOSE,POINT OF CARE 516 MG/DL (70-110)
[2016-10-03 18:26] VITALS: BP 128/85
[2016-10-03 20:26] LABS: GLUCOSE COMMENT 1 Received Meds; GLUCOSE,POINT OF CARE 236 MG/DL (70-110)
[2016-10-04 02:50] VITALS: BP 131/79
[2016-10-04 05:41] LABS: GLUCOSE COMMENT 1 Received Meds; GLUCOSE,POINT OF CARE 181 MG/DL (70-110)
[2016-10-04] MEDS: INSULIN ASPART 100 UNITS/ML SQ PRN ×2 (07:16→11:39)
[2016-10-04 08:00] VITALS: BP 138/87
[2016-10-04] MEDS: IBUPROFEN 600 MG TABLET PO PRN (08:03)
[2016-10-04] MEDS: CEPHALEXIN MONOHYDRATE 500 MG CAPSULE PO SCH ×2 (08:03→16:10)
[2016-10-04] MEDS: FOLIC ACID 1 MG TABLET PO SCH (08:03)
[2016-10-04] MEDS: LISINOPRIL 5 MG TABLET PO SCH (08:03)
[2016-10-04] MEDS: MAG HYDROX/AL HYDROX/SIMETH ES 30 ML SUSPENSION UDCUP PO PRN (08:04)
[2016-10-04] MEDS: GABAPENTIN 300 MG CAPSULE PO SCH ×3 (08:04→16:10)
[2016-10-04] MEDS: RIFAXIMIN 550 MG TABLET PO SCH ×2 (08:04→16:10)
[2016-10-04] MEDS: MULTIVITAMINS WITH MINERALS, THERAPEUTIC TABLET PO SCH (08:04)
[2016-10-04] MEDS: THIAMINE HCL 100 MG TABLET PO SCH ×2 (08:04→16:10)
[2016-10-04] MEDS: FUROSEMIDE 40 MG TABLET PO SCH (08:04)
[2016-10-04] MEDS: RANITIDINE HCL 150 MG TABLET PO SCH (08:04)
[2016-10-04] MEDS: CITALOPRAM HYDROBROMIDE 10 MG TABLET PO SCH (08:05)
[2016-10-04] MEDS: SPIRONOLACTONE 25 MG TABLET PO SCH (08:05)
[2016-10-04] MEDS: NICOTINE 7 MG/24 HOUR PATCH TD SCH (08:11)
[2016-10-04] MEDS: INSULIN DETEMIR 100 UNITS/ML SQ SCH (08:43)
[2016-10-04 08:53] VITALS: BP 138/87
[2016-10-04 11:28] LABS: GLUCOSE COMMENT 1 Received Meds; GLUCOSE,POINT OF CARE 430 MG/DL (70-110)
[2016-10-04 13:17] LABS: GLUCOSE COMMENT 1 Doctor Notified; GLUCOSE,POINT OF CARE 402 MG/DL (70-110)
[2016-10-04 14:26] LABS: GLUCOSE COMMENT 1 Repeated; GLUCOSE,POINT OF CARE 350 MG/DL (70-110)
[2016-10-04] MEDS ORDERED: CITA10TA68 PO (16:27)
[2016-10-04] MEDS ORDERED: CEPH500 PO (16:56)
[2016-10-04] MEDS ORDERED: RANI150T7 PO (17:09)
== END 2016-10-04 18:00 | disposition home or self-care (01) | DRG 751 ==
LOC: EEVIPCON 18:39 → EMS 18:39 → B2S 22:56 → 3EI 10-01 17:56
PROC: HZ2ZZZZ Detoxification Services for Substance Abuse Treatment (ICD-10-PCS; principal; 2016-09-28)
DX: F33.2 Major depressive disorder, recurrent severe without psychotic features (principal); D61.818 Other pancytopenia; E87.1 Hypo-osmolality and hyponatremia; E11.65 Type 2 diabetes mellitus with hyperglycemia; N39.0 Urinary tract infection, site not specified; F11.20 Opioid dependence, uncomplicated; K86.1 Other chronic pancreatitis; J44.9 Chronic obstructive pulmonary disease, unspecified; D50.9 Iron deficiency anemia, unspecified; F10.929 Alcohol use, unspecified with intoxication, unspecified; Y90.2 Blood alcohol level of 40-59 mg/100 ml; B18.2 Chronic viral hepatitis C; M19.90 Unspecified osteoarthritis, unspecified site; K21.9 Gastro-esophageal reflux disease without esophagitis; Z72.0 Tobacco use; Z91.14 Patient's other noncompliance with medication regimen
CPT/HCPCS: 82962; 83036; 87086; 96372; 99285; 99406; G0480; J1815; J3420

== ENCOUNTER 2016-10-01 14:36 | Emergency (ER) | payer MEDICAID, OTHER ==
[~2016-10-01] VITALS: Ht 154.9 cm; Wt 73.6 kg
[2016-10-01 16:40] LABS: APPEARANCE,URINE CLOUDY (CLEAR); GLUCOSE, URINE (UA) >=1000 mg/dL (NEGATIVE); KETONES,URINE NEGATIVE (NEGATIVE); LEUKOCYTE ESTERASE ,URINE TRACE (NEGATIVE); OCCULT BLOOD,URINE NEGATIVE (NEGATIVE); PROTEIN,URINE NEGATIVE (NEGATIVE)
[2016-10-01 16:41] LABS: ADD UA MICROSCOPIC YES
[2016-10-01 16:41] LABS: EOSINOPHILS % (AUTO) 1.1 % (1.0-6.0); HEMATOCRIT 31.1 % (36-46); HEMOGLOBIN 9.7 g/dL (12.0-16.0); LYMPHOCYTES # (AUTO) 0.5 K/uL (1.0-4.8); LYMPHOCYTES % (AUTO) 21.7 % (22.0-44.0); MEAN CORPUSCULAR HEMOGLOBIN 23.7 pg (26.0-34.0); MEAN CORPUSCULAR HGB CONC 31.3 G/dL (31.0-37.0); MEAN CORPUSCULAR VOLUME 76 fL (80-100); MONOCYTES # (AUTO) 0.3 K/uL (0.1-1.0); MONOCYTES % (AUTO) 13.2 % (2.0-9.0); NEUTROPHILS # (AUTO) 1.6 K/uL (1.8-7.7); RED BLOOD CELL COUNT(AUTO) 4.09 MIL/uL (4.00-5.20); RED CELL DISTRIBUTION WIDTH 19.2 % (11.5-14.5); WHITE BLOOD COUNT (AUTO) 2.5 K/uL (4.5-11.0)
[2016-10-01 16:47] LABS: CALCIUM, TOTAL 8.8 mg/dL (8.8-10.5); CREATININE 0.96 mg/dL (0.60-1.30); POTASSIUM 4.3 mmol/L (3.5-5.1)
[2016-10-01 16:50] LABS: RBC,URINE 0-2 /HPF (0-2); SQUAMOUS EPITHELIAL CELL,UR Moderate /LPF (None Seen)
[2016-10-01 16:54] LABS: ALBUMIN 2.8 g/dL (3.4-5.0); BILIRUBIN,TOTAL 0.7 mg/dL (0.1-1.0); TOTAL PROTEIN, SERUM 7.3 g/dL (6.4-8.2)
[2016-10-01 16:56] LABS: PLATELET COUNT (AUTO) 54 K/uL (150-450); RBC MORPHOLOGY COMMENT ABNORMAL RBC MORPH
[2016-10-01] MEDS ORDERED: TraMADol HCL 50 MG TABLET PO ONE (18:00)
[2016-10-01 18:52] LABS: GLUCOSE,POINT OF CARE 247 MG/DL (70-110)
[2016-10-01 20:17] LABS: GLUCOSE,POINT OF CARE 315 MG/DL (70-110)
[2016-10-01 21:57] LABS: GLUCOSE,POINT OF CARE 318 MG/DL (70-110)
[2016-10-01] MEDS ORDERED: ACETAMINOPHEN 325 MG TABLET PO PRN (22:30)
[2016-10-01 22:52] LABS: GLUCOSE,POINT OF CARE 341 MG/DL (70-110)
[2016-10-02] MEDS ORDERED: INSULIN REGULAR, HUMAN 100 UNITS/ML IVP ONE ×2
[2016-10-02 00:37] LABS: GLUCOSE,POINT OF CARE 280 MG/DL (70-110)
[2016-10-02 01:17] LABS: GLUCOSE,POINT OF CARE 246 MG/DL (70-110)
[2016-10-02 01:27] VITALS: BP 127/76
[2016-10-02 05:57] LABS: GLUCOSE,POINT OF CARE 196 MG/DL (70-110)
== END 2016-10-02 01:13 | disposition other institution (70) ==
LOC: EMS 15:27
DX: E11.65 Type 2 diabetes mellitus with hyperglycemia (principal); F29 Unspecified psychosis not due to a substance or known physiological condition; R07.89 Other chest pain; I11.9 Hypertensive heart disease without heart failure; K21.9 Gastro-esophageal reflux disease without esophagitis; F11.90 Opioid use, unspecified, uncomplicated; Z87.891 Personal history of nicotine dependence; Z79.4 Long term (current) use of insulin
CPT/HCPCS: 36415; 71010; 74176; 80053; 81001; 82962; 85025; 87040; 96374; 99285; J1815

== ENCOUNTER 2016-12-27 22:34 | Emergency (ER) | payer OTHER ==
[~2016-12-27] VITALS: Ht 154.9 cm; Wt 75.5 kg
[~2016-12-27 22:34] MED LIST changes: +CEPH500 PO; -FOLI1 PO; -INSLAN SQ; -PANT40TA25 PO; +RANI150T7 PO
[2016-12-27] MEDS ORDERED: INSU100I26 SQ (22:40)
[2016-12-27 22:47] LABS: GLUCOSE,POINT OF CARE 580 MG/DL (70-110)
[2016-12-27 23:34] LABS: BASOPHILS % (AUTO) 0.3 % (0.0-2.0); EOSINOPHILS % (AUTO) 0.9 % (1.0-6.0); HEMATOCRIT 31.2 % (36-46); HEMOGLOBIN 10.5 g/dL (12.0-16.0); LYMPHOCYTES # (AUTO) 0.6 K/uL (1.0-4.8); LYMPHOCYTES % (AUTO) 22.7 % (22.0-44.0); MEAN CORPUSCULAR HEMOGLOBIN 26.5 pg (26.0-34.0); MEAN CORPUSCULAR HGB CONC 33.7 G/dL (31.0-37.0); MEAN CORPUSCULAR VOLUME 78 fL (80-100); MONOCYTES # (AUTO) 0.2 K/uL (0.1-1.0); MONOCYTES % (AUTO) 8.1 % (2.0-9.0); NEUTROPHILS # (AUTO) 1.9 K/uL (1.8-7.7); RED BLOOD CELL COUNT(AUTO) 3.98 MIL/uL (4.00-5.20); RED CELL DISTRIBUTION WIDTH 19.4 % (11.5-14.5); WHITE BLOOD COUNT (AUTO) 2.8 K/uL (4.5-11.0)
[2016-12-27] MEDS ORDERED: SODIUM CHLORIDE 0.9% 1,000 ML IV ONE (23:45)
[2016-12-27] MEDS ORDERED: INSULIN REGULAR, HUMAN 100 UNITS/ML IVP ONE (23:45)
[2016-12-27 23:48] LABS: ALANINE AMINOTRANSFERASE 41 U/L (12-78); ALBUMIN 2.9 g/dL (3.4-5.0); ANION GAP 9 mmol/L (8-16); ASPARTATE AMINOTRANSFERASE 47 U/L (15-37); BILIRUBIN,TOTAL 0.8 mg/dL (0.1-1.0); CALCIUM, TOTAL 9.3 mg/dL (8.8-10.5); CARBON DIOXIDE 27 mmol/L (22-29); CHLORIDE 94 mmol/L (98-107); CREATININE 1.35 mg/dL (0.60-1.30); GLOMERULAR FILTR. RATE CALC 39 mL/min (>60); SODIUM SERUM 130 mmol/L (136-145); TOTAL PROTEIN, SERUM 7.5 g/dL (6.4-8.2); UREA NITROGEN, BLOOD 18 mg/dL (7-18)
[2016-12-27 23:55] LABS: PLATELET COUNT (AUTO) 54 K/uL (150-450)
[2016-12-28 00:12] LABS: GLUCOSE,POINT OF CARE 398 MG/DL (70-110)
[2016-12-28] MEDS ORDERED: MORPHINE SULFATE 4 MG/ML SYRINGE IVP ONE (01:00)
[2016-12-28] MEDS ORDERED: SODIUM CHLORIDE 0.9% 1,000 ML IV ONE (01:00)
[2016-12-28 01:09] LABS: APPEARANCE,URINE CLEAR (CLEAR); GLUCOSE, URINE (UA) >=1000 mg/dL (NEGATIVE); KETONES,URINE NEGATIVE (NEGATIVE); LEUKOCYTE ESTERASE ,URINE NEGATIVE (NEGATIVE); OCCULT BLOOD,URINE NEGATIVE (NEGATIVE); PROTEIN,URINE NEGATIVE (NEGATIVE)
[2016-12-28 01:10] LABS: ADD UA MICROSCOPIC YES
[2016-12-28 01:18] VITALS: BP 98/49
[2016-12-28 01:19] LABS: RBC,URINE 0-2 /HPF (0-2); SQUAMOUS EPITHELIAL CELL,UR Few /LPF (None Seen); WBC,URINE 0-2 /HPF (0-5)
[2016-12-28 01:22] LABS: GLUCOSE,POINT OF CARE 142 MG/DL (70-110)
== END 2016-12-28 01:44 | disposition home or self-care (01) ==
LOC: EMS 22:36
DX: E11.65 Type 2 diabetes mellitus with hyperglycemia (principal); K21.9 Gastro-esophageal reflux disease without esophagitis; I11.9 Hypertensive heart disease without heart failure; F11.90 Opioid use, unspecified, uncomplicated; Z87.891 Personal history of nicotine dependence; Z79.4 Long term (current) use of insulin
CPT/HCPCS: 36415; 80053; 81001; 82009; 82948; 82962; 85025; 96361; 96374; 96375; 99285; J1815; J2270; J7030 ×2

== ENCOUNTER 2017-02-19 12:35 | Emergency (ER) | payer OTHER ==
[~2017-02-19] VITALS: Ht 154.9 cm; Wt 68.0 kg
[~2017-02-19 12:35] MED LIST changes: +INSU100I26 SQ
[2017-02-19] MEDS ORDERED: ARIP2 PO (12:41)
[2017-02-19 12:48] LABS: GLUCOSE,POINT OF CARE 434 MG/DL (70-110)
[2017-02-19] MEDS ORDERED: ARIPiprazole 2 MG TABLET PO ONE (14:45)
[2017-02-19 14:58] LABS: BASOPHILS % (AUTO) 0.1 % (0.0-2.0); EOSINOPHILS # (AUTO) 0.01 K/uL (0.00-0.70); HEMATOCRIT 32.7 % (36-46); HEMOGLOBIN 11.1 g/dL (12.0-16.0); LYMPHOCYTES # (AUTO) 0.4 K/uL (1.0-4.8); LYMPHOCYTES % (AUTO) 22.4 % (22.0-44.0); MEAN CORPUSCULAR HEMOGLOBIN 28.2 pg (26.0-34.0); MEAN CORPUSCULAR VOLUME 83 fL (80-100); MONOCYTES # (AUTO) 0.1 K/uL (0.1-1.0); MONOCYTES % (AUTO) 7.2 % (2.0-9.0); NEUTROPHILS # (AUTO) 1.2 K/uL (1.8-7.7); PLATELET COUNT (AUTO) 26 K/uL (150-450); RED BLOOD CELL COUNT(AUTO) 3.94 MIL/uL (4.00-5.20); WHITE BLOOD COUNT (AUTO) 1.7 K/uL (4.5-11.0)
[2017-02-19] MEDS ORDERED: ACETAMINOPHEN 325 MG TABLET PO ONE (15:00)
[2017-02-19 15:19] LABS: ALANINE AMINOTRANSFERASE 61 U/L (12-78); ALBUMIN 2.9 g/dL (3.4-5.0); ANION GAP 7 mmol/L (8-16); ASPARTATE AMINOTRANSFERASE 105 U/L (15-37); BILIRUBIN,TOTAL 1.3 mg/dL (0.1-1.0); CALCIUM, TOTAL 9.5 mg/dL (8.8-10.5); CARBON DIOXIDE 25 mmol/L (22-29); CHLORIDE 100 mmol/L (98-107); CREATININE 0.85 mg/dL (0.60-1.30); GLOMERULAR FILTR. RATE CALC > 60 mL/min (>60); POTASSIUM 4.5 mmol/L (3.5-5.1); SODIUM SERUM 132 mmol/L (136-145); TOTAL PROTEIN, SERUM 7.5 g/dL (6.4-8.2); UREA NITROGEN, BLOOD 15 mg/dL (7-18)
[2017-02-19] MEDS ORDERED: TraMADol HCL 50 MG TABLET PO ONE (15:30)
[2017-02-19] MEDS ORDERED: INSULIN REGULAR, HUMAN 100 UNITS/ML SQ ONE (16:00)
[2017-02-19] MEDS ORDERED: KETOROLAC TROMETHAMINE 30 MG/ML VIAL IVP ONE (16:15)
[2017-02-19 16:23] LABS: RBC MORPHOLOGY COMMENT ABNORMAL RBC MORPH
[2017-02-19 17:07] LABS: GLUCOSE,POINT OF CARE 412 MG/DL (70-110)
[2017-02-19 17:24] VITALS: BP 115/70
== END 2017-02-19 18:02 | disposition home or self-care (01) ==
LOC: EMS 12:41
DX: F41.9 Anxiety disorder, unspecified (principal); E11.65 Type 2 diabetes mellitus with hyperglycemia; K21.9 Gastro-esophageal reflux disease without esophagitis; I11.9 Hypertensive heart disease without heart failure; F11.90 Opioid use, unspecified, uncomplicated; Z87.891 Personal history of nicotine dependence; Z79.4 Long term (current) use of insulin; Z91.19 Patient's noncompliance with other medical treatment and regimen
CPT/HCPCS: 36415; 80053; 80307; 82962; 83690; 84484; 85025; 93005; 96372; 96374; 99285; G0480; J1815; J1885